=== PATIENT | male | born 1955 | race Caucasian/White ===

== ENCOUNTER 2023-02-14 18:04 | Emergency (ER) | payer MEDICARE, OTHER ==
--- OUTSIDE RECORDS SUMMARY | 2023-02-14 18:08 | XMS REPORT | Continuity of Care Document ---
:1955 Author Organization [facility] t Address [address] [facility] [facility]. [address] [place] [address] Care Team Providers Name Role Phone Sharpless Primary Care Physician CHATA EASTMAN Attending Clinician Unavailable Devan Lee Attending Clinician Payers Payer Name Policy Type Policy Number Effective Date Expiration Date S keena [facility] [id number] 2021 00:00:00 Problems Condition Condition Condition Status Onset Resolution Last Treating Co mments Source Name Details Category Date Date Treatment Clinician Date 719.41 - 719.41 - Diagnosis Active [id number] Memoria JOINT JOINT 2-10 08:58:00 l PAIN-SHLD PAIN-SHLD 00:01: Herm rosalina Active 00 02/21/2012 ZENOBIA Gaytan Allergies, Adverse Reactions, Alerts This patient has no known allergies or adverse reactions. Social History Social Habit Start Date Stop Date Quantity Comments Source History SDOH [facility] History SDOH [facility] Alcohol Std Drinks Medica l Center History [facility] Alcohol Binge Medical [address] Sexual orientation [facility] Exposure to 2022-05-01 2022-05-11 Not sure [facility] SARS-CoV-2 (event) 00:00:00 10:39:00 Alcohol intake 2017-04-04 2017-04-04 Current drinker of I [facility] 00:00:00 00:00:00 alcohol (finding) [facility] Tobacco use and 2017-04-01 2017-04-01 Never used [facility] exposure 00:00:00 00:00:00 [facility] Alcohol Comment 2017-04-01 2017-04-[address] [facility] [address] [facility] 00:00:00 00:00:00 [facility] Sex Assigned At [birth year] [facility] 00:00:00 [facility]:00 [facility] Smoking Status Start Date Stop Date Source Never smoked tobacco [facility] Medications Ordered Filled Start Stop Current Ordering Indication Dosage Frequency Signature Comments Components Source Medication Medication Date Date Medication? Clinician (SIG) Name Name misti 2022- No [id number] 48mg [facility] (Synvisc) 05-11 Health injection 17:00: 17:00 48 mg 00 :00 hylan 2022- No [id number] 48mg [facility] (Synvisc) 05-11 Health injection 17:00: 17:00 48 mg 00 :00 hylan 2022- No [id number] 48mg 48 mg, [facility] (Synvisc) 05-11 Intra-doris He alth injection 17:00: 17:00 cular, 48 mg 00 :00 Once PRN Procedure, Starting on Tue05/11/22 at 1100, For 1 dose hylan 2022- No [id number] 48mg 48 mg, [facility] (Synvisc) 05-11 Intra-doris He alth injection 17:00: 17:00 cular, 48 mg 00 :00 Once PRN Procedure, Starting on Tue05/11/22 at 1100, For 1 dose hylan Yes [id number] 16mg [facility] (Synvisc) 04-26 Health injection 14:45: 16 mg 00 hylan Yes [id number] 16mg [facility] (Synvisc) 04-26 Health injection 14:45: 16 mg 00 meloxicam 2022- No [id number] 7.5mg QD Take 1 [facility] (Mobic) 7.5 04-07 tablet Heal th MG tablet 00:00: 04:59 (7.5 mg 00 :00 total) by mouth 1 (one) time each day. bupivacaine 2021-03- No [id number] 4mL [facility] (Marcaine) 01-05 Health 0.25 % 16:46: 16:46 injection 4 55 :00 mL methylPREDN 2021-03- No [id number] 40mg [facility] ISolone 01-05 Health acetate 16:46: 16:46 (DEPO-Medro 55 :00 l) injection 40 mg methylPREDN 2021-03- No [id number] 40mg 40 mg, UT ISolone 01-05 Intra-doris Heal th acetate 16:46: 16:46 cular, (DEPO-Medro 55 :00 Once PRN l) Procedure, injection Starting 40 mg on Tue01/05/22 at 1146, For 1 dose bupivacaine 2021-03- No [id number] 4mL 4 mL, [facility] (Marcaine) 01-05 Injection, H ealth 0.25 % 16:46: 16:46 Once PRN injection 4 55 :00 Procedure, mL Starting on Tue01/05/22 at 1146, For 1 dose No known 2021-03 No No known [facility] medications medication He alth 10:15: s 20 bupivacaine 2021- No [id number] 1mL [facility] (Marcaine) 07-07 Health 0.5 % 16:35: 16:35 injection 1 45 :00 mL methylPREDN 2021- No [id number] 40mg [facility] ISolone 07-07 Health acetate 16:35: 16:35 (DEPO-Medro 45 :00 l) injection 40 mg bupivacaine 2021- No [id number] 1mL [facility] (Marcaine) 07-07 Health 0.5 % 16:35: 16:35 injection 1 45 :00 mL methylPREDN 2021- No [id number] 40mg UT ISolone 07-07 Health acetate 16:35: 16:35 (DEPO-Medro 45 :00 l) injection 40 mg methylPREDN 2021- No [id number] 40mg 40 mg, UT ISolone 07-07 Intra-doris Heal th acetate 16:35: 16:35 cular, (DEPO-Medro 45 :00 Once PRN l) Procedure, injection Starting 40 mg on Tue07/07/21 at 1135, For 1 dose bupivacaine 2021- No [id number] 1mL 1 mL, UT (Marcaine) 07-07 Injection, H ealth 0.5 % 16:35: 16:35 Once PRN injection 1 45 :00 Procedure, mL Starting on Tue07/07/21 at 1135, For 1 dose methylPREDN 2021- No [id number] 40mg 40 mg, UT ISolone 07-07 Intra-doris Heal th acetate 16:35: 16:35 cular, (DEPO-Medro 45 :00 Once PRN l) Procedure, injection Starting 40 mg on Tue07/07/21 at 1135, For 1 dose bupivacaine 2021- No [id number] 1mL 1 mL, UT (Marcaine) 07-07 Injection, H ealth 0.5 % 16:35: 16:35 Once PRN injection 1 45 :00 Procedure, mL Starting on Tue07/07/21 at 1135, For 1 dose meloxicam Yes UT (Mobic) 7.5 3-08 Health MG tablet 00:00: 00 meloxicam 0 2021- No [facility] (Mobic) 7.5 3-08 -25 Health MG tablet 00:00: 00:00 00 :00 Procedures Procedure Date / Time Performed Performing Clinician Sourc e ARTHROCENTESIS ASPIR&/INJ MAJOR 2022-05-11 17:00:00 [place] JT/BURSA W/O US BILATERAL ARTHROCENTESIS ASPIR&/INJ MAJOR 2022-01-05 16:46:55 [place] JT/BURSA W/O US BILATERAL ARTHROCENTESIS ASPIR&/INJ MAJOR 2021-07-07 14:15:00 Eloy [facility] JT/BURSA W/O US BILATERAL Encounters Start End Encounter Admission Attending Care Care Encounter Source Date/Time Date/Time Type Type Clinicians Facility Department ID 2022-05-06 Outpatient [facility] [id number] [place] 14:28:01 [id number] [facility] 2022-05-04 Outpatient [facility] [id number] [place] 10:10:49 [id number] [facility] 2021-12-29 Outpatient [facility] [id number] [place] 10:41:49 [id number] [facility] 2021-07-07 Outpatient JAREN, [facility] [id number] [place] 09:00:33 CHATA [id number] [facility] 2021-07-06 Outpatient JAREN, [facility] [id number] [place] 10:22:43 CHATA [id number] [facility] 2021-07-01 Outpatient JAREN, [facility] [id number] [place] 13:03:20 CHATA [id number] [facility] 2022-05-11 2022-05-11 Procedure MIRIAN [place] [facility] [id number] [place] 11:00:00 11:34:41 [id number] [id number] PLAZA 2 [id number] 1 2022-04-06 2022-04-06 Office Jaren [facility] [id number] [place] 09:45:00 10:15:49 Visit Chata SUGAR [id number] He alth [facility] [id number] [address] 2 [id number] 1 2022-01-05 2022-01-05 Office Jaren [facility] [id number] [place] 10:15:00 10:49:08 Visit Chata SUGAR [id number] He alth [facility] [id number] [address] 2 [id number] 1 2021-07-07 2021-07-07 Office Jaren [facility] [id number] [place] 09:15:00 10:28:26 Visit Chata SUGAR [id number] He alth [facility] [id number] [address] 2 [id number] 1 2012-03-01 2012-03-01 OD [facility] [id number] [facility] 08:43:00 08:43:00 00 lena Waldron Results This patient has no known results.
[2023-02-14] MEDS ORDERED: LIDOCAINE 1% MPF 5 ML VIAL ONE (21:59)
[2023-02-14] MEDS ORDERED: TDAP (DIPHTH,PERTUSS(ACELL),TET VAC) 0.5 ML VIAL IMVAC ONE (21:59)
--- NOTE | 2023-02-14 22:22 | EDPHYS ---
Physician Documentation [facility] Name: Vick Friend Age: 67 yrs Sex: Male : 1955 Arrival Date: 02/14/2023 Time: 18:04 Bed DIS3 Private MD: ED Physician Ryan Clement HPI: 02/14 21:35 This 67 yrs old Male presents to ER via Ambulatory with complaints of Finger Injury. cp 21:35 The patient or guardian reports a laceration, clean. The complaints affect the distal cp phalanges of right middle and right ring fingers. 21:35 Context: resulted from sharp edge of ladder. Onset: The symptoms/episode began/occurred cp just prior to arrival. Associated signs and symptoms: The patient has no apparent associated signs or symptoms. Historical: - Allergies: 19:12 No Known Allergies; lg3 - Home Meds: 19:12 unknown HTN [Active]; unknown anxiety [Active]; lg3 - PMHx: 19:12 Anxiety; HTN; lg3 - PSHx: 19:12 shoulder; foot; lg3 - Immunization history:: Adult Immunizations up to date, Client reports receiving the 1st dose of the Covid vaccine, Last tetanus immunization: < 5 years ago Flu vaccine is not up to date. - Social history:: Smoking status: Patient denies any tobacco usage or history of. Patient/guardian denies using alcohol, street drugs. ROS: 21:40 Skin: Positive for laceration(s), of the distal phalanges of right middle and right cp ring fingers, 21:40 All other systems are negative, Exam: 21:45 Constitutional: The patient appears in no acute distress, alert, awake, comfortable, cp non-toxic, well developed, well nourished, 21:45 Head/Face: Normocephalic, atraumatic. cp 21:45 Musculoskeletal/extremity: examination of right middle and ring fingers show tendons intact, digits neurovascular intact. 21:45 Skin: injury, laceration(s), of the radial side of distal phalanx of right middle finger, of the radial side of distal phalanx of right ring finger, that can be described as clean, irregular, with mild bleeding, skin flap noted, Vital Signs: 19:11 BP 168 / 93; Pulse 75; Resp 17 S; Temp 98.7(O); Pulse Ox 100% on R/A; Weight 90.72 kg lg3 (R); Height 6 ft. 0 in. (R); 19:11 Body Mass Index 27.12 (90.72 kg, 182.88 cm) lg3 Laceration: 22:25 Wound Repair of 3cm ( 1.2in ) subcutaneous laceration to right middle finger radial cp side of distal phalanx. Skin/tissue flap noted.. Distal neuro/vascular/tendon intact. Anesthesia: Wound infiltrated with 3 mls of 1% lidocaine. Wound prep: Moderate cleansing by me, Wound irrigation by me. Skin closed with 4 4-0 Prolene using interrupted sutures and sterile technique. Dressed with Bacitracin. Patient tolerated well. 22:25 Wound Repair of 2cm ( 0.8in ) partial thickness laceration to right ring finger radial cp side of distal phalanx. Skin/tissue flap noted.. Distal neuro/vascular/tendon intact. Anesthesia: Local anesthetic administered with 2 mls of 1% lidocaine. Wound prep: Moderate cleansing by me, Wound irrigation by me. Skin closed with 3 4-0 Prolene using simple sutures and sterile technique. Dressed with Bacitracin. Patient tolerated well. MDM: 20:07 Patient medically screened. snw 21:30 Differential diagnosis: open fracture, closed fracture, contusion. cp 22:20 Data reviewed: vital signs, nurses notes. cp 22:20 Refusal of service: The patient/guardian displays adequate decision making capability cp and despite a detailed discussion of alternatives, benefits, risks, and consequences refuses: all X-rays. 22:21 Test considered but Not performed: X-ray: right hand. cp 22:21 Care significantly affected by the following chronic conditions: Hypertension. cp Counseling: I had a detailed discussion with the patient and/or guardian regarding the historical points, exam findings, and any diagnostic results supporting the discharge/admit diagnosis, the need for outpatient follow up, a family practitioner, to return to the emergency department if symptoms worsen or persist or if there are any questions or concerns that arise at home. Response to treatment: the patient's symptoms have markedly improved after treatment, and as a result, I will discharge patient. Special discussion: wound care. 02/14 21:31 Order name: Wound Care; Complete Time: 21:58 cp 02/14 21:31 Order name: Dressing - Wound; Complete Time: 21:58 cp 02/14 21:31 Order name: Gloves, Sterile; Complete Time: 21:58 cp 02/14 21:31 Order name: Setup Suture Tray; Complete Time: 21:58 cp Administered Medications: 21:57 Drug: Tetanus-Diphtheria Toxoid IM Adult 0.5 ml IM once; Provide Vaccine Information bp Statement (VIS). 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[employer]; Exp: TueAug 03 2024; Lot #: [id number]; Series: 1 of 1; Patient Consent: Obtained; Date/Time: ; Source Name: Vick Friend; Source Relationship: Self; Address Information: [address] [place] [address], [facility] [address]; ; Education: Provided; VIS Presented Date: ; VIS Publication: Tetanus/Diphtheria (Td) Vaccine VIS 06/22/2016 (historic)} Route: IM; Site: left deltoid; 23:26 Follow up: Response: No adverse reaction bp 21:57 Drug: Lidocaine Infiltration (1 %) 10 ml 20 ml Infiltration once; to bedside Volume: 20 bp ml; Route: Infiltration; Disposition Summary: 02/14/23 22:21 Discharge Ordered Notes: Location: Home cp Problem: new cp Symptoms: have improved cp Condition: Stable cp Diagnosis - Laceration without foreign body of right middle finger without damage to nail cp - Laceration without foreign body of right ring finger without damage to nail cp Followup: cp - With: Private Physician - When: 10 - 14 days - Reason: Staple/Suture removal Discharge Instructions: - Discharge Summary Sheet cp - Laceration Care, Adult cp - Sutured Wound Care cp Forms: - Medication Reconciliation Form cp - Thank You Letter cp - Antibiotic Education cp - Prescription Opioid Use cp - Patient Portal Instructions cp - Leadership Thank You Letter cp Prescriptions: - Cephalexin 500 mg Oral Capsule - take 1 capsule ORAL route every 8 hours for 10 days; 30 capsule; Refills: 0, cp Product Selection Permitted Signatures: Dispatcher [employer] Carolyne Lam FNP-C FNP-Marcell White PA PA cp Peltier, Brian RN RN bp Sharon Kendall RN RN lg3 Corrections: (The following items were deleted from the chart) 20:26 19:37 Hand Right 3 View+[email or web address] ordered. EDMS EDMS 02/15 13:49 13:48 Skin: Positive for laceration(s), of the distal phalanges of right middle and cp right ring fingers, cp 13:49 13:48 All other systems are negative, cp cp
--- NOTE | 2023-02-14 22:22 | ER ---
Nurse's Notes [facility] Name: Vick Friend Age: 67 yrs Sex: Male : 1955 Arrival Date: 02/14/2023 Time: 18:04 Bed DIS3 Private MD: Diagnosis: Laceration without foreign body of right middle finger without damage to nail;Laceration without foreign body of right ring finger without damage to nail Presentation: 02/14 19:11 Chief complaint: Patient states: lacerations to right middle and ring finger from lg3 ladder. Coronavirus screen: At this time, unable to obtain information related to travel outside the [place] At this time, the client does not indicate any symptoms associated with coronavirus-19. Ebola Screen: No symptoms or risks identified at this time. Initial Sepsis Screen: Does the patient meet any 2 criteria? No. Patient's initial sepsis screen is negative. Does the patient have a suspected source of infection? No. Patient's initial sepsis screen is negative. Risk Assessment: Do you want to hurt yourself or someone else? Patient reports no desire to harm self or others. Onset of symptoms was February 14, 2023. 19:11 Method Of Arrival: Ambulatory lg3 19:11 Acuity: VALARIE 4 lg3 Triage Assessment: 19:12 General: Appears in no apparent distress. comfortable, Behavior is calm, cooperative. lg3 Pain: Complains of pain in right middle finger and right ring finger. EENT: No deficits noted. No signs and/or symptoms were reported regarding the EENT system. Neuro: No deficits noted. Childers Agitation-Sedation Scale (RASS): 0 - Alert and Calm Level of Consciousness is awake, alert, obeys commands, Oriented to person, place, time, situation. Cardiovascular: No deficits noted. Denies chest pain, shortness of breath, Capillary refill < 3 seconds Clubbing of nail beds is absent JVD is absent Patient's skin is warm and dry. Respiratory: No deficits noted. Airway is patent Respiratory effort is even, unlabored, Respiratory pattern is regular, symmetrical. GI: No deficits noted. No signs and/or symptoms were reported involving the gastrointestinal system. : No deficits noted. No signs and/or symptoms were reported regarding the genitourinary system. Derm: Skin is intact, is healthy with good turgor, Skin is dry, Skin is normal, Skin temperature is warm Wound noted right middle finger and right ring finger. Musculoskeletal: No deficits noted. No signs and/or symptoms reported regarding the musculoskeletal system. Circulation, motion, and sensation intact. Range of motion: intact in all extremities. Injury Description: Laceration. 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 - Social history:: Smoking status: Patient denies any tobacco usage or history of. Patient/guardian denies using alcohol, street drugs. Screenin:[facility] ED Fall Risk Assessment (Adult) History of falling in the last 3 months, bp including since admission No falls in past 3 months (0 pts). Abuse screen: Denies threats or abuse. Denies injuries from another. Nutritional screening: No deficits noted. Tuberculosis screening: No symptoms or risk factors identified. Vital Signs: 19:11 BP 168 / 93; Pulse 75; Resp 17 S; Temp 98.7(O); Pulse Ox 100% on R/A; Weight 90.72 kg lg3 (R); Height 6 ft. 0 in. (R); 19:11 Body Mass Index 27.12 (90.72 kg, 182.88 cm) lg3 ED Course: 18:08 Patient arrived in ED. mg5 18:46 Carolyne Tidwell FNP-C is PHCP. snw 18:46 Ryan Clement MD is Attending Physician. snw 19:12 Triage completed. lg3 19:12 Arm band placed on left wrist. lg3 20:08 Marcell Joe PA is PHCP. cp 20:08 Ryan Clement MD is Attending Physician. cp 23:25 Patient has correct armband on for positive identification. Provided Education on: N/A. bp 23:25 No provider procedures requiring assistance completed. Patient did not have IV access bp during this emergency room visit. Administered Medications: 21:57 Drug: Tetanus-Diphtheria Toxoid IM Adult 0.5 ml IM once; Provide Vaccine Information bp Statement (VIS). 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[employer]; Exp: TueAug 03 2024; Lot #: [id number]; Series: of ; Patient Consent: Obtained; Date/Time: ; Source Name: Vick Friend; Source Relationship: Self; Address Information: [address] [place] [address]; ; Education: Provided; VIS Presented Date: ; VIS Publication: Tetanus/Diphtheria (Td) Vaccine VIS 06/22/2016 (historic)} Route: IM; Site: left deltoid; 23:26 Follow up: Response: No adverse reaction bp 21:57 Drug: Lidocaine Infiltration (1 %) 10 ml 20 ml Infiltration once; to bedside Volume: 20 bp ml; Route: Infiltration; Medication: 23:26 VIS not applicable for this client. bp Outcome: 22:21 Discharge ordered by MD. cp 23:25 Discharged to home ambulatory, bp 23:25 Condition: stable 23:25 Discharge instructions given to patient, Instructed on discharge instructions, follow up and referral plans. wound care, Demonstrated understanding of instructions, follow-up care, medications, wound care, Prescriptions given X 1, 23:26 Patient left the ED. bp Signatures: Carolyne Tidwell FNP-C PROJECT CONTROL OFFICER-Csnw Marcell Joe PA PA Vick Tran RN RN bp Sharon Kendall, ZEV RN lg3 Ruth Stuart mg5
[2023-02-14 23:51] VITALS: BP 168/93; TEMP 98.7; O2SAT 100
== END 2023-02-14 23:26 | disposition home or self-care (01) ==
LOC: ER 18:04
PROC: 0HQFXZZ Repair Right Hand Skin, External Approach (ICD-10-PCS; principal; 2023-02-14)
DX: S61.212A Laceration without foreign body of right middle finger without damage to nail, initial encounter (principal); S61.214A Laceration without foreign body of right ring finger without damage to nail, initial encounter; Z23 Encounter for immunization
CPT/HCPCS: 90471; 99284; 12002; J2001

== ENCOUNTER 2024-12-14 11:48 | Emergency (ER) | payer MEDICARE ==
--- NOTE | 2024-12-14 12:05 | EDPHYS ---
Physician Documentation [facility] Name: Vick Friend Age: 69 yrs Sex: Male : 1955 Arrival Date: 12/14/2024 Time: 11:48 Bed 16 Private MD: ED Physician Ryan Clement HPI: 12/14 12:07 This 69 yrs old Male presents to ER via Ambulatory with complaints of Fall dr5 Injury, Head Injury Without LOC-Adult - LAC. 12:07 Onset: The symptoms/episode began/occurred acutely. Patient is a 69-year-old male with dr5 history of anxiety and hypertension coming in with fall off ladder and hit back of head on metal fence. Patient denies loss of consciousness. Patient denies being on blood thinners. Patient denies any symptoms such as headache, dizziness, numbness or tingling. Patient states that he took a shower after injury and was trying to continue hanging up lights when bleeding continued.. Historical: - Allergies: 12:01 No Known Allergies; dd2 - PMHx: 12:01 Anxiety; HTN; dd2 12:01 Anxiety; HTN; af3 - PSHx: 12:01 foot; Shoulder; dd2 12:01 foot; Shoulder; af3 - Immunization history:: Adult Immunizations up to date, Adult Immunizations up to date. - Infectious Disease History:: Denies. Denies. - Social history:: Smoking status: Patient denies any tobacco usage or history of. Smoking status: unknown. ROS: 12:07 Constitutional: as per hpi dr5 Exam: 12:07 Constitutional: This is a well developed, well nourished patient who is awake, alert, dr5 and in no acute distress. Head/Face: Normocephalic, atraumatic. Eyes: Pupils equal round and reactive to light, extra-ocular motions intact. Lids and lashes normal. Conjunctiva and sclera are non-icteric and not injected. Cornea within normal limits. Periorbital areas with no swelling, redness, or edema. Neck: Trachea midline, no thyromegaly or masses palpated, and no cervical lymphadenopathy. Supple, full range of motion without nuchal rigidity, or vertebral point tenderness. No Meningismus. Chest/axilla: Normal chest wall appearance and motion. Nontender with no deformity. No lesions are appreciated. Cardiovascular: Regular rate and rhythm with a normal S1 and S2. Normal PMI, no JVD. No pulse deficits. Respiratory: Lungs have equal breath sounds bilaterally, clear to auscultation. No rales, rhonchi or wheezes noted. No increased work of breathing, no retractions or nasal flaring. Back: No spinal tenderness. No costovertebral tenderness. Full range of motion. Skin: Warm, dry with normal turgor. Normal color with no rashes, no lesions, and no evidence of cellulitis. 2 cm laceration noted to top of head in the middle MS/ Extremity: Pulses equal, no cyanosis. Neurovascular intact. Full, normal range of motion. Neuro: Awake and alert, GCS 15, oriented to person, place, time, and situation. Cranial nerves II-XII grossly intact. Motor strength 5/5 in all extremities. Sensory grossly intact. Cerebellar exam normal. Normal gait. Vital Signs: 12:00 BP 154 / 102; Pulse 104; Resp 17; Temp 98; Pulse Ox 97% ; Pain 0/10; dd2 12:10 BP 154 / 102; Pulse 93; Resp 18; Pulse Ox 93% on R/A; af3 12:00 Pain Scale: Adult dd2 NIH Stroke Scale Scores: 12:07 NIHSS Score: 0 dr5 Laceration: 12:07 Wound Repair of 2cm ( 0.8in ) subcutaneous laceration to top middle of head. Linear dr5 shaped.. Distal neuro/vascular/tendon intact. Wound prep: Moderate cleansing by me. Skin closed with 4 [place] using staple gun. Dressed with non-adherent dressing. Patient tolerated well. MDM: 11:52 Medical Screening Exam initiated dr5 12:07 Differential diagnosis: abrasion, closed head injury, contusion, fracture, sprain, dr5 strain. Data reviewed: vital signs, nurses notes. Consideration of Admission/Observation Escalation of care including admission/observation considered. Escalation considered patient found to have neurological deficit. I considered the following discharge prescriptions or medication management in the emergency department I discussed and recommended Over The Counter medications. Test considered but Not performed: CT: CT scan not completed due to patient refusal. Patient states that since he does not have neurological deficit he does not want to have CT scan done.. Care significantly affected by the following chronic conditions: Hypertension, Anxiety. Care significantly affected by the following Social Determinants of Health: Poor access to healthcare and/or lack of insurance, Poor access to transportation, Problems related to employment. Counseling: I had a detailed discussion with the patient and/or guardian regarding the historical points, exam findings, and any diagnostic results supporting the discharge/admit diagnosis, the presence of at least one elevated blood pressure reading (>120/80) during this emergency department visit, the need for outpatient follow up, for definitive care, a family practitioner, to return to the emergency department if symptoms worsen or persist or if there are any questions or concerns that arise at home. Special discussion: I discussed with the patient/guardian in detail that at this point there is no indication for admission to the hospital. It is understood, however, that if the symptoms persist or worsen the patient needs to return immediately for re-evaluation. Based on the history and exam findings, there is no indication for further emergent testing or inpatient evaluation. I discussed with the patient/guardian the need to see the primary care provider for further evaluation of the symptoms. ED course: Strict ER precautions given for any numbness, tingling, loss of consciousness, blurry vision, dizziness and to return immediately. Patient verbalized understanding. 4 ismael placed with well approximation of wound. Recommended patient have ismael removed in 5 days. All questions answered. Strict ER precautions given. Patient's last tetanus was within the last 5 years and does not want one today.. Administered Medications: No medications were administered Disposition Summary: 12/14/24 12:04 Discharge Ordered Notes: Location: Home dr5 Condition: Stable dr5 Diagnosis - Laceration without foreign body of unspecified part of head dr5 - Unspecified injury of head, initial encounter dr5 Followup: dr5 - With: Emergency Department - When: As needed - Reason: Worsening of condition Followup: dr5 - With: Private Physician - When: 5 - 6 days - Reason: Staple/Suture removal Discharge Instructions: - Discharge Summary Sheet dr5 - Head Injury, Adult dr5 - Laceration Care, Adult, [place] dr5 Forms: - Medication Reconciliation Form dr5 - Patient Portal Instructions dr5 - Leadership Thank You Letter dr5 NIH Stroke Scale - NIH Stroke Score Date: 12/14/2024 Time: 12:07 Total Score = 0 10. Dysarthria (speech clarity - read or repeat words) - 0(Normal) 11. Extinction and Inattention (visual/tactile/auditory/spatial/personal) - 0(No abnormality) 1a. Level of Consciousness (LOC) - 0(Alert) 1b. Level of Consciousness (LOC) (Month \T\ Age) - 0(Both) 1c. LOC Commands (Open \T\ Closes Eyes/Museum Service Scheduler) - 0(Both) 2. Best Gaze (Lateral Gaze Paresis) - 0(Normal) 3. Visual Field Loss - 0(No visual loss) 4. Facial Palsy - 0(Normal) 5a. Left Arm: Motor (10-second hold) - 0(No drift) 5b. Right Arm: Motor (10-second hold) - 0(No drift) 6a. Left Leg: Motor (5-second hold - always test supine) - 0(No drift) 6b. Right Leg: Motor (5-second hold - always test supine) - 0(No drift) 7. Limb Ataxia (finger/nose \T\ heel/dalal - test with eyes open) - 0(Absent) 8. Sensory Loss (pinprick arms/legs/face) - 0(Normal) 9. Best Language: Aphasia (description/naming/reading) - 0(No aphasia) Initials: dr5 Signatures: Jocelyn Walters RN RN af3 XAVIER FAYE RN RN dd2 Willem Forrest, OLEOMARGARINE MAKER-C OLEOMARGARINE MAKER-Cdr5 Corrections: (The following items were deleted from the chart) 12:08 12:07 Patient is a 69-year-old male with history of anxiety and hypertension dr5 coming in with. dr5 12:08 12:07 Constitutional: This is a well developed, well nourished patient who is dr5 awake, alert, and in no acute distress. Head/Face: Normocephalic, atraumatic. Eyes: Pupils equal round and reactive to light, extra-ocular motions intact. Lids and lashes normal. Conjunctiva and sclera are non-icteric and not injected. Cornea within normal limits. Periorbital areas with no swelling, redness, or edema. Neck: Trachea midline, no thyromegaly or masses palpated, and no cervical lymphadenopathy. Supple, full range of motion without nuchal rigidity, or vertebral point tenderness. No Meningismus. Chest/axilla: Normal chest wall appearance and motion. Nontender with no deformity. No lesions are appreciated. Cardiovascular: Regular rate and rhythm with a normal S1 and S2. Normal PMI, no JVD. No pulse deficits. Respiratory: Lungs have equal breath sounds bilaterally, clear to auscultation. No rales, rhonchi or wheezes noted. No increased work of breathing, no retractions or nasal flaring. Back: No spinal tenderness. No costovertebral tenderness. Full range of motion. Skin: Warm, dry with normal turgor. Normal color with no rashes, no lesions, and no evidence of cellulitis. MS/ Extremity: Pulses equal, no cyanosis. Neurovascular intact. Full, normal range of motion. Neuro: Awake and alert, GCS 15, oriented to person, place, time, and situation. Cranial nerves II-XII grossly intact. Motor strength 5/5 in all extremities. Sensory grossly intact. Cerebellar exam normal. Normal gait. dr5
--- NOTE | 2024-12-14 12:05 | ER ---
Nurse's Notes [facility] Name: Vick Friend Age: 69 yrs Sex: Male : 1955 Arrival Date: 12/14/2024 Time: 11:48 Bed 16 Private MD: Diagnosis: Laceration without foreign body of unspecified part of head;Unspecified injury of head, initial encounter Presentation: 12/14 12:00 Chief complaint: Patient states: FELL OFF A LADDER AND HIT HEAD ON A METAL FENCE. dd2 REPORTS 5 FOOT LADDER. DENIES LOC, BLOOD THINNERS, N/V OR BLURRED VISION. Coronavirus screen: At this time, the client does not indicate any symptoms associated with coronavirus-19. Ebola Screen: No symptoms or risks identified at this time. Initial Sepsis Screen: Does the patient meet any 2 criteria? No. Patient's initial sepsis screen is negative. Does the patient have a suspected source of infection? No. Patient's initial sepsis screen is negative. Risk Assessment: Do you want to hurt yourself or someone else? Patient reports no desire to harm self or others. Onset of symptoms was December 14, 2024. 12:00 Method Of Arrival: Ambulatory dd2 12:00 Acuity: VALARIE 4 dd2 Triage Assessment: 12:01 General: Appears in no apparent distress. Behavior is calm, cooperative, appropriate dd2 for age. Pain: Denies pain. Injury Description: Laceration sustained to scalp was sustained 30-60 minutes ago. moderate bleeding noted at this time. Historical: - Allergies: 12:01 No Known Allergies; dd2 - PMHx: 12:01 Anxiety; HTN; dd2 12:01 Anxiety; HTN; af3 - PSHx: 12:01 foot; Shoulder; dd2 12:01 foot; Shoulder; af3 - Immunization history:: Adult Immunizations up to date, Adult Immunizations up to date. - Infectious Disease History:: Denies. Denies. - Social history:: Smoking status: Patient denies any tobacco usage or history of. Smoking status: unknown. Screenin:01 [facility] ED Fall Risk Assessment (Adult) History of falling in the last 3 months, af3 including since admission Yes- single mechanical fall (1 pt) Confusion or Disorientation No (0 pts) Intoxicated or Sedated No (0 pts) Impaired Gait No (0 pts) Mobility Assist Device Used No (0 pt) Altered Elimination No (0 pt) Score/Fall Risk Level 0 - 2 = Low Risk Oriented to surroundings, Maintained a safe environment, Educated pt \T\ family on fall prevention, incl call for assistance when getting out of bed. Abuse screen: Denies threats or abuse. Denies injuries from another. Nutritional screening: No deficits noted. Tuberculosis screening: No symptoms or risk factors identified. Assessment: 12:00 General: Appears in no apparent distress. comfortable, well groomed, well developed, af3 Behavior is calm, cooperative, appropriate for age. Pain: Complains of pain in scalp. Neuro: Level of Consciousness is awake, alert, obeys commands, Oriented to person, place, time, situation, Appropriate for age. Cardiovascular: Patient's skin is warm and dry. Respiratory: Airway is patent Respiratory effort is even, unlabored, Respiratory pattern is regular, symmetrical. 12:10 Reassessment: Patient appears in no apparent distress at this time. No changes from af3 previously documented assessment. Patient and/or family updated on plan of care and expected duration. Pain level reassessed. Patient is alert, oriented x 3, equal unlabored respirations, skin warm/dry/pink. Vital Signs: 12:00 BP 154 / 102; Pulse 104; Resp 17; Temp 98; Pulse Ox 97% ; Pain 0/10; dd2 12:10 BP 154 / 102; Pulse 93; Resp 18; Pulse Ox 93% on R/A; af3 12:00 Pain Scale: Adult dd2 NIH Stroke Scale Scores: 12:07 NIHSS Score: 0 dr5 ED Course: 11:51 Patient arrived in ED. cj3 11:52 Willem Forrest FNP-C is PHCP. dr5 11:52 Ryan Clement MD is Attending Physician. dr5 11:54 Jocelyn Walters RN is Primary Nurse. af3 12:01 Triage completed. dd2 12:01 Arm band placed on right wrist. dd2 12:01 Patient has correct armband on for positive identification. Bed in low position. Call af3 light in reach. Provided Education on: call light use . 12:01 No provider procedures requiring assistance completed. af3 12:11 Patient did not have IV access during this emergency room visit. af3 Administered Medications: No medications were administered Medication: 12:01 VIS not applicable for this client. af3 Outcome: 12:04 Discharge ordered by . mono 12:11 Discharged to home ambulatory, af3 12:11 Condition: stable 12:11 Discharge instructions given to patient, Instructed on discharge instructions, follow up and referral plans. Demonstrated understanding of instructions, follow-up care, 12:11 Patient left the ED. af3 NIH Stroke Scale - NIH Stroke Score Date: 12/14/2024 Time: 12:07 Total Score = 0 10. Dysarthria (speech clarity - read or repeat words) - 0(Normal) 11. Extinction and Inattention (visual/tactile/auditory/spatial/personal) - 0(No abnormality) 1a. Level of Consciousness (LOC) - 0(Alert) 1b. Level of Consciousness (LOC) (Month \T\ Age) - 0(Both) 1c. LOC Commands (Open \T\ Closes Eyes/Furniture Mover Driver) - 0(Both) 2. Best Gaze (Lateral Gaze Paresis) - 0(Normal) 3. Visual Field Loss - 0(No visual loss) 4. Facial Palsy - 0(Normal) 5a. Left Arm: Motor (10-second hold) - 0(No drift) 5b. Right Arm: Motor (10-second hold) - 0(No drift) 6a. Left Leg: Motor (5-second hold - always test supine) - 0(No drift) 6b. Right Leg: Motor (5-second hold - always test supine) - 0(No drift) 7. Limb Ataxia (finger/nose \T\ heel/dalal - test with eyes open) - 0(Absent) 8. Sensory Loss (pinprick arms/legs/face) - 0(Normal) 9. Best Language: Aphasia (description/naming/reading) - 0(No aphasia) Initials: dr5 Signatures: Jocelyn Walters RN RN af3 XAVIER FAYE RN RN dd2 Willem Forrest, CHIEF MARKETING OFFICER-C CHIEF MARKETING OFFICER-5 Padmini Jackson 3
[2024-12-14 12:21] VITALS: BP 154/102; TEMP 98
[2024-12-14 12:23] VITALS: O2SAT 93
== END 2024-12-14 12:11 | disposition home or self-care (01) ==
LOC: ER 11:48
DX: S01.01XA Laceration without foreign body of scalp, initial encounter (principal); W11.XXXA Fall on and from ladder, initial encounter
CPT/HCPCS: 12001; 99282